=== PATIENT | male | born 1975 | race Caucasian/White ===

== ENCOUNTER 2018-09-29 21:55 | Emergency (ER) | payer SELFPAY ==
[~2018-09-29] VITALS: Ht 170.2 cm; Wt 88.5 kg
--- NOTE | 2018-09-29 22:04 | NUR ---
MEKHI FROM [place]. TO ER BED 10. AAOX4. [place] SPEAKING, EMT AT BEDSIDE FOR TRANSLATION. C/O MID LOWER BACK PAIN WHICH HAPPENED WHILE PLAYING SOCCER. PT RATES PAIN 10/10 SHARP SHOOTING PAIN TO UPPER MID BACK. AWAITING MD FOR MARY
[2018-09-29] MEDS ORDERED: oxyCODONE/APAP (5/325 MG) 1 UDTAB TABLET ONE (22:19)
[2018-09-29] MEDS ORDERED: KETOROLAC TROMETHAMINE INJ 60 MG/2 ML VIAL IM ONE ×2 (22:19→22:30)
--- NOTE | 2018-09-29 22:24 | NUR ---
XRAY AT BEDSIDE
[2018-09-29] MEDS ORDERED: oxyCODONE/APAP (5/325 MG) 1 UDTAB TABLET PO ONE (22:30)
--- NOTE | 2018-09-29 23:08 | NUR ---
Patient discharged to home in stable condition. Written and verbal after care instructions given. Patient verbalizes understanding of instruction. Pt ambulatory with a steady gait
[2018-09-29 23:09] VITALS: BP 128/74
== END 2018-09-29 23:10 | disposition home or self-care (01) ==
LOC: ER 21:59
DX: S33.5XXA Sprain of ligaments of lumbar spine, initial encounter (principal); X58.XXXA Exposure to other specified factors, initial encounter; Y93.66 Activity, soccer; Y92.89 Other specified places as the place of occurrence of the external cause; Y99.8 Other external cause status
CPT/HCPCS: 72110; 96372; 99283; J1885